=== PATIENT | female | born 1985 | race Caucasian/White ===

== ENCOUNTER 2018-08-25 15:47 | Emergency (ER) | payer SELFPAY ==
[~2018-08-25] VITALS: Ht 157.5 cm; Wt 72.1 kg
[2018-08-25 16:11] VITALS: BP 103/69
--- NOTE | 2018-08-25 16:11 | NUR ---
Patient ambulated to bed 5 with family. RN evaluating patient at bedside.
--- NOTE | 2018-08-25 16:11 | NUR ---
BIB DAUGHTER. AAO X4. PT C/O GENERALIZED BODY ACHE, WEAKNESS, DIZZINESS X 2 DAYS. PT STATES HEADACHE OF 9/10. DENIES NAUSEA AND VOMITING. SKIN WARM AND DRY TO TOUCH. 99.7 ORAL TEMP. DENIES SOB. HOB UP. BED SIDE RAILS UP X1. ON LOW BED POSITION, LOCKED. ER MADE AWARE OF PT STATUS.
--- NOTE | 2018-08-25 16:42 | NUR ---
Dr. Dupree evaluating patient at bedside.
[2018-08-25] MEDS ORDERED: NACL 0.9% 1,000 ML IV SCH (16:54)
[2018-08-25] MEDS ORDERED: PROMETHAZINE 25 MG/ML VIAL IM ONE (16:55)
[2018-08-25] MEDS ORDERED: ONDANSETRON 4 MG/2 ML VIAL IVP ONE (16:55)
[2018-08-25 17:22] LABS: APPEARANCE,URINE CLEAR (CLEAR); BILIRUBIN,URINE NEGATIVE (NEGATIVE); BLOOD, URINE 1+ (NEGATIVE); COLOR,URINE YELLOW (YELLOW); LEUKOCYTE ESTERASE ,URINE 1+ (NEGATIVE); NITRITE, URINE NEGATIVE (NEGATIVE); UGLUCOSE NEGATIVE (NEGATIVE)
--- NOTE | 2018-08-25 17:24 | NUR ---
electrical instrument technician at bedside.
[2018-08-25 17:28] LABS: RBC,URINE 0-5 /HPF (0-5); WBC,URINE 0-5 /HPF (0-5)
[2018-08-25 17:29] LABS: YEAST,URINE Moderate /HPF (None Seen)
[2018-08-25 17:34] LABS: BASOPHILS % (AUTO) 0.6 % (0.0-2.0); EOSINOPHILS # (AUTO) 0.1 K/uL (0-0.4); EOSINOPHILS % (AUTO) 2.8 % (0.0-4.0); HEMATOCRIT 45.4 % (36-48); HEMOGLOBIN 15.4 g/dL (12.0-16.0); LYMPHOCYTES # (AUTO) 0.2 K/uL (2.5-16.5); LYMPHOCYTES % (AUTO) 4.9 % (20.5-51.1); MEAN CORPUSCULAR HEMOGLOBIN 30 pg (27-31); MEAN CORPUSCULAR HGB CONC 34 g/dL (33-37); MEAN CORPUSCULAR VOLUME 89.6 fL (80-94); MONOCYTES # (AUTO) 0.7 K/uL (0.8-1.0); NEUTROPHILS % (AUTO) 78.7 % (42.2-75.2); PLATELET COUNT (AUTO) 195 K/uL (140-450); RED BLOOD CELL COUNT(AUTO) 5.06 MIL/uL (4.20-5.40); RED CELL DISTRIBUTION WIDTH 13.3 % (11.6-13.7); WHITE BLOOD COUNT (AUTO) 5.1 K/uL (4.8-10.8)
--- NOTE | 2018-08-25 17:34 | NUR ---
Patient taken to CT scan via gurney by [facility].
[2018-08-25] MEDS ORDERED: PROMETHAZINE 25 MG/ML VIAL IVP ONE (17:40)
--- NOTE | 2018-08-25 17:42 | NUR ---
Patient returned from CT scan. RN re-evaluating patient at bedside.
[2018-08-25 17:57] LABS: ANION GAP 13.1 (8-16); CARBON DIOXIDE 27.3 mmol/L (21-32); CREATININE 0.7 mg/dL (0.6-1.3); POTASSIUM 3.4 mmol/L (3.5-5.1)
[2018-08-25 18:02] LABS: ALBUMIN 3.9 g/dL (3.4-5.0); TOTAL BILIRUBIN 0.4 mg/dL (0.0-1.0)
[2018-08-25 18:05] LABS: PROTHROMBIN TIME 9.6 secs (10.8-13.4)
[2018-08-25] MEDS ORDERED: LEVOFLOXACIN 500 MG TAB PO ONE (18:55)
--- NOTE | 2018-08-25 19:11 | NUR ---
IV removed, catheter intact and site benign. Applied folded 4x4 gauze and tape to stop bleeding.
--- NOTE | 2018-08-25 19:11 | NUR ---
Patient discharged with v/s stable. Written and verbal after care instructions given and explained. Patient alert, oriented and verbalized understanding of instructions. Ambulatory with steady gait. All questions addressed prior to discharge. ID band removed. Patient advised to follow up with PMD. Rx of LEVAQUIN, ANTIVERT, FIORCET given. Patient educated on indication of medication including possible reaction and side effects. Opportunity to ask questions provided and answered.
[2018-08-25 19:12] VITALS: BP 114/71
== END 2018-08-25 19:11 | disposition home or self-care (01) ==
LOC: MED 15:47
DX: N39.0 Urinary tract infection, site not specified (principal); R42 Dizziness and giddiness; R51 Headache; R53.1 Weakness; R79.1 Abnormal coagulation profile
CPT/HCPCS: 36415; 70450; 71045; 80053; 81001; 81025; 82150; 83690; 84484; 84703; 85025; 85610; 85730; 87086; 87804; 93005; 96361; 96372; 96374; 96375; 99284; J2405; J2550; J7030; Q0092

== ENCOUNTER 2018-08-27 23:00 | Emergency (ER) | payer SELFPAY ==
[~2018-08-27] VITALS: Ht 157.5 cm; Wt 68.0 kg
[2018-08-27 23:10] VITALS: BP 134/80
--- NOTE | 2018-08-27 23:10 | NUR ---
TO BED # 09 AMBULATORY,REPORT GIVEN TO PAM NELSON
--- NOTE | 2018-08-27 23:20 | NUR ---
32 YO F BIB SELF AND DAUGHTER PRESENTS TO THE ED C/O FRONTAL LOBE DEAN X 2 DAYS. PT DENIES NVD, FEVER, CHILLS, CHEST PAIN, SOB. -- SKIN PINK, DRY, WARM. BREATHING EVEN, UNLABORED. -- PT ALERT, CALM, COOPERATIVE, BEHAVIOR APPROPRIATE. PMH-- DENIES RX-- MOTRIN NEEDED FOR PAIN PT POSITIONED FOR COMFORT. HOB ELEVATED. SIDE RAIL UP X1. BED IN LOWEST POSITION. VSS. NO APPARENT DISTRESS AT THIS TIME.
[2018-08-27] MEDS ORDERED: PROCHLORPERAZINE 5 MG TAB PO ONE (23:30)
[2018-08-27] MEDS ORDERED: IBUPROFEN 600 MG TAB PO ONE (23:30)
[2018-08-28] MEDS ORDERED: SUMAtriptan 25 MG TAB PO ONE (00:10)
[2018-08-28] MEDS ORDERED: MORPHINE SULFATE 4 MG/ML SYR IM ONE (00:50)
[2018-08-28 01:30] VITALS: BP 100/61
== END 2018-08-28 01:30 | disposition home or self-care (01) ==
LOC: MED 23:00
DX: G43.909 Migraine, unspecified, not intractable, without status migrainosus (principal)
CPT/HCPCS: 96372; 99284; J2270; Q0164